=== PATIENT | male | born 1955 | race Caucasian/White ===

== ENCOUNTER 2020-08-25 13:05 | Observation (INO) | payer BC, SELFPAY ==
[2020-08-25] VITALS (16 sets, daily range): BP systolic 115–152; BP diastolic 68–85; PULSE 68–88; RESP 13–24; TEMP 36.8–37.2; O2SAT 94–100; BMI 26.8
--- NOTE | ~2020-08-25 | XR_ITS ---
EXAMINATION: XR chest 2V DATE: 08/25/2020 13:36 INDICATION: Shortness of breath and chest pain TECHNIQUE: PA and lateral views of the chest are obtained. COMPARISON: 01/30/2014 FINDINGS: The lungs are free of acute opacities. A calcified nodule of the right upper lobe is consis tent with old granulomatous disease. There is no pleural effusion or pneumothorax. The cardiomediasti nal silhouette is normal. The visualized bones and soft tissues are unremarkable. IMPRESSION: 1. No acute cardiopulmonary abnormality. Reviewed, dictated and finalized at location B.
--- NOTE | 2020-08-25 13:06 | ECG_ITS ---
Measurements Intervals [place] Rate: 72 P: 55 NE: 150 QRS: 30 QRSD: 100 T: 33 QT: 381 QTc: 418 Interpretive Statements SINUS RHYTHM NORMAL ECG Electronically Signed On 08-25-2020 13:17:49 CDT by Claudio Pereyra D.O.
[2020-08-25 13:30] LABS: Basophils Percent Auto 0.3 % (0.2-1.2); Eosinophils Absolute Auto 0.2 K/mm3 (0-0.3); Eosinophils Percent Auto 2.5 % (0-4.4); Hematocrit 30.6 % (42.0-52.0); Hemoglobin 9.7 g/dL (14.0-18.0); Immature Granulocyte Absolute 0.03 K/mm3 (0.00-0.031); Immature Granulocyte Percent A 0.5 % (0-0.5); Lymphocytes Absolute Auto 1.05 K/mm3 (0.9-3.2); Lymphocytes Percent Auto 17.4 % (18.3-44.2); Mean Corpuscular HGB Conc 31.7 g/dl (32-36); Mean Corpuscular Hemoglobin 26.9 pg (26-34); Mean Corpuscular Volume 84.8 fl (80-100); Mean Platelet Volume 9.3 fl (7.4-10.4); Monocytes Absolute Auto 0.5 K/mm3 (0.1-0.6); Monocytes Percent Auto 7.8 % (2.6-8.5); Neutrophils Absolute Auto 4.3 K/mm3 (1.3-6.7); Neutrophils Percent Auto 71.5 % (45.5-73.1); Platelet Count Result 359 k/mm3 (150-375); Red Blood Count 3.61 M/mm3 (4.6-6.20); Red Cell Distribution Width 14.3 % (11.5-14.5)
[2020-08-25 13:43] LABS: Anion Gap 8 mmol/L (8-16); Blood Urea Nitrogen 16 mg/dL (9-20); Calcium 9.6 mg/dL (8.4-10.2); Carbon Dioxide 27 mmol/L (22-30); Chloride 105 mmol/L (98-107); Estimated CRCL calculation 72 ml/min; Estimated Glomerular Filt Rate > 60; Glucose 97 mg/dL (75-110); Potassium 4.2 mmol/L (3.4-5.0); Sodium 140 mmol/L (137-145)
--- NOTE | 2020-08-25 13:46 | ED.CHESTPAIN ---
HPI - Chest Pain General Chief Complaint: Chest Pain Stated Complaint: chest pain, SOB Time Seen by Provider: 08/25/20 13:23 Source: patient Mode of arrival: ambulatory Limitations: no limitations History of Present Illness HPI narrative: Patient is a 65-year-old male complaining of chest pain, midsternal, pressure, 8 out of 10, now resolved, radiating to left upper extremity accompanied by shortness of breath and dizziness started after mowing his lawn. Patient now states that all his symptoms has resolved and he is feeling better. Patient denies any abdominal pain, nausea, vomiting, diaphoresis, fever or chills. Related Data Home Medications Medication Instructions Recorded Confirmed No Home Medications 08/25/20 08/25/20 Allergies Allergy/AdvReac Type Severity Reaction Status Date / Time No Known Allergies Allergy Verified 08/25/20 14:16 Review of Systems Review of Systems: All systems reviewed & are unremarkable except as noted in HPI and below Constitutional: Constitutional: Denies body ache(s), Denies chills, Denies excessive sweating, Denies fatigue, Denies fever(s), Denies headache(s), Denies lethargy, Denies malaise, Denies weakness and Denies weight loss Eyes: Eyes: Denies blurry vision, Denies change in vision and Denies loss of vision ENT: Denies dizziness, Denies ear discharge, Denies headache(s), Denies lip swelling, Denies epistaxis, Denies nasal congestion, Denies neck pain, Denies throat swelling and Denies tongue swelling Cardiovascular: Cardiovascular: Denies diaphoresis, Denies rapid heart rate, Denies edema, Denies irregular heart rhythm, Denies lightheadedness and Denies palpitations Respiratory: Respiratory: Denies chest congestion, Denies cough and Denies hemoptysis Gastrointestinal: Gastrointestinal: Denies abdominal pain, Denies melena, Denies hematochezia, Denies diarrhea, Denies nausea, Denies vomiting and Denies hematemesis Musculoskeletal: Musculoskeletal: Denies abnormal gait, Denies deformity, Denies joint swelling, Denies limited range of motion, Denies neck pain and Denies numbness Neurologic: Denies Abnormal speech present, Denies abnormal gait, Denies confusion, Denies headache(s), Denies focal weakness, Denies loss of vision, Denies numbness, Denies Other visual disturbances, Denies Sensory deficit (Neuro) and Denies weakness Psychiatric: Psychiatric: Denies confusion, Denies depression, Denies auditory hallucinations, Denies homicidal ideation and Denies suicidal ideation Endocrine: Endocrine: Denies cold intolerance, Denies excessive sweating, Denies fatigue, Denies heat intolerance and Denies palpitations Hematologic/Lymphatic: Hematologic/Lymphatic: Denies easy bleeding and Denies easy bruising Allergic/Immunologic: Allergic/Immunologic: Denies lip swelling, Denies throat swelling and Denies tongue swelling PMFSH Social History Social History Smoking status: Never smoker Alcohol intake: current Exam Const: General: cooperative, healthy appearing, comfortable, no acute distress, well developed, alert and awake; No confusion Orientation/consciousness: oriented to person, oriented to place, oriented to time, patient oriented x3 and No confusion Limitations: no limitations HENMT: Head: normal to inspection, normocephalic and atraumatic Ears: hearing grossly normal bilaterally, TM normal on the right and TM normal on the left General nose exam: Normal external nose present, Normal nares present and No nasal discharge present Face and sinus: normal facial exam Mouth: Yes Normal oral and palatal mucosa present, Yes lip normal, Yes tongue normal and Yes oropharynx normal Throat: posterior oropharynx normal, tonsils normal and uvula midline Eyes: General: appearance normal, both eyes and all related structures Pupils: Equal, round and reactive pupils present EOM: EOMs intact bilaterally Neck: Neck: normal visual inspection, full ROM, no lymphadenopathy and no meningeal s
[2020-08-25 13:47] LABS: INR 0.9; Prothrombin Time 12.2 Seconds (11.1-14.7)
[2020-08-25 13:55] LABS: Troponin I < 0.012 ng/mL (0.000-0.034)
[2020-08-25] MEDS: ASPIRIN 81 MG CHEWABLE TABLET 324 MG PO (14:18)
[2020-08-25 15:49] LABS: Troponin I 0.015 ng/mL (0.000-0.034)
--- NOTE | 2020-08-25 17:26 | ECG_ITS ---
Measurements Intervals [place] Rate: 75 P: 47 WI: 151 QRS: 14 QRSD: 99 T: 31 QT: 393 QTc: 440 Interpretive Statements SINUS RHYTHM EARLY PRECORDIAL R/S TRANSITION BORDERLINE ECG Electronically Signed On 08-26-2020 6:52:01 CDT by Claudio Pereyra D.O.
[2020-08-25 19:59] LABS: Troponin I 0.014 ng/mL (0.000-0.034)
--- NOTE | 2020-08-25 20:01 | PC.NURSE ---
This patient, Oren Lopez, was admitted to IMU Room 200-01. Patient/family oriented to hospital policies and general routines including ID bracelet, bed and alarms, visiting hours, pain management, procedures, bathroom and other care routines, personal items, smoking policy, room service/diet, and visiting hours. Information on how to activate the Rapid Response Team has been discussed. Patient/Family are encouraged to report perceived risks to care and to ask questions if they do not understand what they are told or what they should do.
[2020-08-26] VITALS (7 sets, daily range): BP systolic 115–130; BP diastolic 76–80; PULSE 54–72; RESP 14–18; TEMP 36.2–37.1; O2SAT 94–100
--- NOTE | 2020-08-26 10:02 | PM.IMHP ---
H&P: HPI History of Present Illness Date/Time: Date of service:08/26/20 10:02 Chief Complaint: Exertional chest pain Narrative: this is a 65-year-old man who does not have any previous known cardiac problems came to the emergency room here last evening because of symptoms of exertional chest pain that began Friday, the earlier part of this week. he does state that his primary care physician in the past this told him that he has a cardiac murmur but this was not a matter of any significant concern from what he can remember.The patient has noticed on 2 occasions since Friday of this week when he mows his grass he experiences symptoms of dyspnea and chest pain which have not generally been any problem for him. He is used to being able to to be in the habit of exercising significantly he usually rides his bicycle for fitness and has no symptomatology when he is exercising. This past week as mentioned above when he has tried to mow his lawn on a couple of occasions he has had to stop because of dyspnea and then a pain in the center of the chest that has radiated into the left shoulder and into the left arm. On both occasions when he stops to rest after a couple of minutes he becomes asymptomatic. He is not having any other symptoms such as orthopnea PND edema palpitations or syncope. He decided to come into the emergency room here last evening with the symptoms his evaluation in the ED was essentially unremarkable other than he was somewhat anemic with hemoglobin of 9.7. He states he has never been told by his physician that he was anemic in the past. He has a primary care physician out at [facility] in [facility] who sees him regularly for for physical exam but is not actively treating any medical problems. He is a retired gentleman who is a nonsmoker and has a history of coronary disease and CHF in his father but not at a premature age. One of his brothers has had cardiac valve surgery. Review of Systems Constitutional: Constitutional: Reports no additional constitutional complaints Eyes: Eyes: Reports no additional eye complaints ENT: Reports system reviewed and no additional complaints, except as documented Cardiovascular: Cardiovascular: Reports as per HPI Respiratory: Respiratory: Reports as per HPI Gastrointestinal: Gastrointestinal: Reports no additional gastrointestinal complaints Comments: Recent onset of dark stools Musculoskeletal: Musculoskeletal: Reports no additional musculoskeletal complaints Integumentary/Breasts: Skin/Breast: Reports system reviewed and no additional complaints, except as docu Neurologic: Reports system reviewed and no additional complaints, except as documented [facility] Family History Family History (Updated 08/25/20 @ 20:16 by Sweta Davalos RN) Father Congestive heart failure Hypertension Mother Cancer Social History Social History Smoking status: Never smoker Alcohol intake: current Drinks per week: 4 Substance use: never Spiritual care concerns: No Meds Home Medications and Allergies Home Medications Medication Instructions Recorded Confirmed Type No Home Medications 08/25/20 08/25/20 History Allergies Allergy/AdvReac Type Severity Reaction Status Date / Time No Known Allergies Allergy Verified 08/25/20 14:16 Vital Signs Vital Signs - 24 hr 08/25/20 13:08 08/25/20 14:14 08/25/20 14:15 Temperature 37.2 C Pulse Rate 76 72 72 Respiratory Rate 18 16 13 Blood Pressure 152/85 H 134/85 134/85 Pulse Oximetry 98 100 100 08/25/20 14:31 08/25/20 14:46 08/25/20 15:01 Temperature Pulse Rate 75 72 70 Respiratory Rate 21 H 13 13 Blood Pressure 123/79 124/82 127/85 Pulse Oximetry 96 100 96 08/25/20 17:36 08/25/20 18:00 08/25/20 18:17 Temperature Pulse Rate 76 Respiratory Rate 16 Blood Pressure 122/81 Pulse Oximetry 98 100 100 08/25/20 18:30 08/25/20 18:45 08/25/20 19:00 Temperature Pulse Rate 88 83
--- NOTE | 2020-08-26 10:42 | PM.DS ---
DS: Admitting Diagnosis Admitting Diagnosis Admitting Diagnosis: exertional angina DS: Discharge Diagnosis Discharge Diagnosis (1) Chest pain: Qualifiers: Chest pain type: unspecified Qualified Code(s): R07.9 - Chest pain, unspecified Code(s): R07.9 - Chest pain, unspecified Status: Acute DS: Summary Hospital Course Reason for hospitalization: exertional angina Hospital Course: this 65-year-old man who is unknown to me prior to this admission. He receives his medical care from a PCP out at [facility]. He came to the emergency room because starting on Friday of this week he noticed some episodes of exertional chest pain. Most notably when he is performing activities such as mowing his lawn 2 occasions he noted he had to stop because of the sense of shortness of breath and some chest discomfort which also did radiate into the region of his left shoulder and on 1 occasion into his left arm. The patient recognized the symptoms as concerning he came to the emergency room were of course he was not having any symptoms since he was not exerting. His ER evaluation was negative and he was admitted to the hospital for observation overnight. When I saw him this morning he was asymptomatic and comfortable at bedrest and offered no other complaints. He reports a history of a cardiac murmur in the past that was noted by his PCP which had not been otherwise evaluated as he was asymptomatic. his lab data here also showed that he was somewhat anemic with a hemoglobin of 9.7 with normocytic indices. On further questioning he does noticed darkening of his stools recently. No oxana hematochezia or obvious melena. Patient's biomarkers remain negative and had he had 2 normal electrocardiograms. The patient clearly requires evaluation of suspected ischemic heart disease, valvular heart disease and anemia. He is however not unstable and since he presented on Friday evening of the 3 day 27 of August hol weekend it was his preference and my recommendation that this could be pursued as an outpatient and directed by his established physician out at [facility]. I discussed at length with the patient about scheduling evaluation here at [facility] but in the interest of coordination of his care at 1 the institution I expressed a preference for him to be evaluated by his established physicians. As it happens he has an appointment with his PCP for an upcoming physical exam next week Friday which of course is right after the holiday weekend. He will presumably be referred for Cardiology and possibly GI evaluation at that institution. That being the case that is not my intention at this time to schedule if further evaluation here at [facility] or by our practice regarding his cardiac symptoms. In order to increase chances of stability I recommended that he take low-dose aspirin and prescribed low-dose metoprolol and rosuvastatin. He is instructed to remain sedentary and to see his physician for the scheduled appointment on Friday of next week. If his symptoms accelerate between now and then he was instructed either to come back to the hospital here or out to [facility] I would recommend this evaluation to take place as I mentioned above. Status at Discharge Functional status at discharge: independent ambulation Overall status at discharge: patient is back to baseline Time Spent with Patient Time attestation: Total time spent providing and/or coordinating discharge services: Exam Const: General: comfortable and no acute distress Eyes: Sclera: sclerae normal Pupils: Equal, round and reactive pupils present Neck: Neck: supple and no JVD Resp: Effort & Inspection: normal respiratory effort Auscultation: clear to auscultation bilaterally Cardio: Rate: regular rate Rhythm: regular rhythm Other: PMI not displaced patient has a grade 2/6 early peaking crescendo decrescendo murmur audible at the base, no diastolic murmu
[2020-08-26] MEDS: ROSUVASTATIN 5 MG TABLET PO (10:47)
[2020-08-26] MEDS: ASPIRIN 81 MG ENTERIC TABLET PO (10:47)
[2020-08-26] MEDS: METOPROLOL SUCCINATE EXT REL 25 MG TABCR PO (10:48)
== END 2020-08-26 11:10 | disposition home or self-care (01) ==
LOC: ANHED 17:25 → ANHIMU 08-26 10:49
PROVIDERS: Emergency Medicine; Admitting Provider Internal Medicine Cardiovascular Disease; Emergency Provider Emergency Medicine; PCP Internal Medicine Rheumatology; Visit Provider Specialist
DX: R07.9 Chest pain, unspecified (principal); R06.02 Shortness of breath; R42 Dizziness and giddiness; D64.9 Anemia, unspecified; Z82.49 Family history of ischemic heart disease and other diseases of the circulatory system; Z80.9 Family history of malignant neoplasm, unspecified
CPT/HCPCS: 36415; 71046; 80048; 84484; 85025; 85610; 85730; 93005; 99285; A9270; G0378

== ENCOUNTER 2023-01-25 10:47 | Emergency (ER) | payer MEDICARE, SELFPAY ==
--- NOTE | ~2023-01-25 | XR_ITS ---
EXAMINATION: XR chest 2V DATE: 01/25/2023 12:22 INDICATION: Tachycardia and hypertension TECHNIQUE: PA and lateral views of the chest were obtained. COMPARISON: Chest radiograph dated 08/25/2020 FINDINGS: Calcified nodule right upper lobe consistent with old granulomatous disease. No other airspace opacit ies, pulmonary edema, pleural effusion or pneumothorax. The cardiomediastinal silhouette is normal. V isualized bones and soft tissues are unremarkable. IMPRESSION: 1. No acute cardiopulmonary disease. Reviewed, dictated and finalized at location A. ODS EXAMINER
--- NOTE | ~2023-01-25 | CT_ITS ---
EXAMINATION: CTA chest PE protocol DATE: 01/25/2023 14:26 EARLY LEARNING TEACHER INDICATION: Shortness of breath. Heart racing. TECHNIQUE: Computed tomographic angiography (CTA) of the chest was performed with 100 mL Omnipaque-35 0 intravenous contrast. The dose-length product was 608.47 mGy-cm. Maximum intensity projection 3D-re constructions of the aorta and other arteries were constructed by the technologist on a separate work station. Automated exposure control and iterative reconstruction technique were employed. COMPARISON: None. FINDINGS: Study is technically adequate without evidence for pulmonary embolism. No thoracic lymphade nopathy. Heart size upper normal. No significant pleural or pericardial effusion. Upper abdomen is un remarkable. There are patchy groundglass opacities bilaterally. No endobronchial lesions. No pneumoth orax. Calcified granuloma right upper lobe. Mild thoracic spondylosis. Mild osteoarthritis of the francois ulders. IMPRESSION: 1. Patchy bilateral groundglass opacities in both lungs which may reflect small airway disease or pne umonia. 2: No evidence for pulmonary embolism. Reviewed, dictated and finalized at location A. Y LEARNING TEACHER IMPRESSION: 1. Patchy bilateral groundglass opacities in both lungs which may reflect small airway disease or pneumonia. 2: No evidence for pulmonary embolism.
[2023-01-25 10:46] VITALS: BP 171/90; PULSE 68; RESP 14; TEMP 36.8; O2SAT 100
[2023-01-25 11:01] VITALS: BP 169/92; PULSE 67; RESP 14; O2SAT 100
--- NOTE | 2023-01-25 11:09 | ECG_ITS ---
Measurements Intervals [place] Rate: 64 P: 46 AL: 166 QRS: 16 QRSD: 114 T: 42 QT: 415 QTc: 430 Interpretive Statements SINUS RHYTHM NONSPECIFIC iNTRAVENTRICULAR CONDUCTION DELAY [110+ ms QRS DURATION] BORDERLINE ECG COMPARED TO ECG 08/25/2020 19:10:44 NONSPECIFIC IVCD APPRECIATED Electronically Signed On 01-25-2023 14:12:01 RAMP AGENT by Leonel Albert M.D.
--- NOTE | 2023-01-25 11:25 | ED.DIZZY ---
HPI - Dizziness General Chief Complaint: Syncope Stated Complaint: near syncopal Time Seen by Provider: 01/25/23 11:08 Source: patient, EMS, RN notes reviewed and old records reviewed Mode of arrival: EMS Limitations: no limitations History of Present Illness HPI Narrative: This is a 67 year old male with history of hypertension, hyperlipidemia and CAD s/p stent 2 years ago who presents for evaluation of lightheadedness. Patient states he was lightheaded when he got out of bed this morning. He states he was standing and he felt like his heart was racing and he was going to pass out. She also reports possible mild sob. He denies chest pain or discomfort. He states this lasted approximately 10 minutes. He was able to walk outside but he still felt off. He reports he feels better now. MD elicited complaint: lightheadedness Related Data Home Medications Medication Instructions Recorded Confirmed clopidogrel 75 mg tablet mg 01/25/23 01/25/23 Allergies Allergy/AdvReac Type Severity Reaction Status Date / Time No Known Allergies Allergy Verified 08/25/20 14:16 Review of Systems Constitutional: Constitutional: Denies weakness Cardiovascular: Cardiovascular: Denies syncope, Reports rapid heart rate, Denies irregular heart rhythm, Denies leg edema and Reports dyspnea Respiratory: Respiratory: Denies chest congestion, Denies hemoptysis, Denies excessive phlegm production and Denies dyspnea Gastrointestinal: Gastrointestinal: Denies abdominal pain, Denies hematochezia, Denies diarrhea and Denies vomiting Genitourinary: Genitourinary: Denies hematuria, Denies dysuria, Denies penile discharge and Denies testicular pain Musculoskeletal: Musculoskeletal: Denies joint swelling, Denies loss of height and Denies muscle weakness Neurologic: Reports dizziness, Denies syncope, Denies focal weakness and Denies weakness [facility] Past Medical History Medical History (Updated 01/25/23 @ 15:04 by Jocelynn Arceo MD) CAD (coronary artery disease) Surgical History Surgical History (Updated 01/25/23 @ 11:27 by Jocelynn Arceo MD) History of coronary artery stent placement Family History Family History (Updated 08/25/20 @ 20:16 by Sweta Davalos RN) Father Congestive heart failure Hypertension Mother Cancer Social History Social History Smoking status: Never smoker Alcohol intake: current Drinks per week: 4 Substance use: never Spiritual care concerns: No Exam Const: General: no acute distress and alert Nutritional Appearance: well nourished Orientation/consciousness: patient oriented x3 Limitations: no limitations HENMT: Head: normal to inspection Ears: TM's normal bilaterally Eyes: EOM: EOMs intact bilaterally Chest: Chest palpation & inspection: normal inspection of the chest Resp: Effort & Inspection: normal respiratory effort Auscultation: clear to auscultation bilaterally Cardio: Rate: regular rate Rhythm: regular rhythm Heart sounds: Murmur heart sound present systolic GI: Auscultation: normal bowel sounds Back/Spine/Pelvis: Back: no CVA tenderness Skin: General skin exam: normal color Rashes: no rashes Wounds: no wounds Neuro: General: patient oriented x3, moves all extremities and CN's II-XI intact bilaterally Psych: Mental Status: mental status grossly normal Affect: normal affect Attitude: cooperative Course Reevaluation(s) Reevaluation #1: PAtient states he feels better. He is not having heart racing. 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 I also discussed his CT . He denies any cough or shortness of breath. no fever or wbc so unlikely pneumonia Date: 01/25/23 Time: 15:01 Vital Signs Vital signs: Vital Signs Temperature 98.3 F 01/25/23 10:46 Pulse Rate 68 01/25/23 10:46 Respiratory Rate 14 01/25/23 10:46 Blood Pressure 171/90 H 01/25/23 10:46 Pulse Oximetry 100 01/25/23 10:46 Oxygen Delivery Room Air
[2023-01-25 11:56] LABS: Basophils Percent Auto 0.3 % (0.2-1.2); Eosinophils Absolute Auto 0.1 K/mm3 (0-0.3); Eosinophils Percent Auto 2.2 % (0-4.4); Hematocrit 41.9 % (42.0-52.0); Hemoglobin 13.4 g/dL (14.0-18.0); Immature Granulocyte Absolute 0.03 K/mm3 (0.00-0.031); Immature Granulocyte Percent A 0.5 % (0-0.5); Lymphocytes Absolute Auto 1.04 K/mm3 (0.9-3.2); Lymphocytes Percent Auto 17.2 % (18.3-44.2); Mean Corpuscular Hemoglobin 26.2 pg (26-34); Mean Platelet Volume 9.5 fl (7.4-10.4); Monocytes Absolute Auto 0.6 K/mm3 (0.1-0.6); Monocytes Percent Auto 9.8 % (2.6-8.5); Neutrophils Absolute Auto 4.2 K/mm3 (1.3-6.7); Platelet Count Result 264 k/mm3 (150-375); Red Blood Count 5.11 M/mm3 (4.6-6.20); Red Cell Distribution Width 14.4 % (11.5-14.5)
[2023-01-25 12:08] LABS: Alanine Aminotransferase 40 U/L (6-50); Alkaline Phosphatase 96 U/L (38-126); Anion Gap 9 mmol/L (8-16); Aspartate Amino Transferase 34 U/L (17-59); Bilirubin,Total 0.3 mg/dL (0.2-1.3); Blood Urea Nitrogen 16 mg/dL (9-20); Calcium 8.7 mg/dL (8.4-10.2); Carbon Dioxide 25 mmol/L (22-30); Chloride 105 mmol/L (98-107); Estimated CRCL calculation 84 ml/min; Estimated Glomerular Filt Rate > 60; Glucose 108 mg/dL (65-110); Lipase 62 U/L (23-300); Potassium 4.3 mmol/L (3.4-5.0); Sodium 139 mmol/L (137-145)
[2023-01-25 12:10] LABS: INR 0.9; Prothrombin Time 12.8 Seconds (11.1-14.7)
[2023-01-25 12:11] LABS: Partial Thromboplastin Time 28.9 SECONDS (22.3-36.8)
[2023-01-25 12:19] LABS: Troponin I < 0.012 ng/mL (0.000-0.034)
[2023-01-25 12:45] LABS: D Dimer 0.49 ug/mL (<0.48)
[2023-01-25 14:12] VITALS: BP 138/78; PULSE 68
[2023-01-25 14:13] VITALS: BP 148/89; PULSE 67
[2023-01-25 14:15] VITALS: BP 142/92
[2023-01-25 14:58] LABS: Troponin I 0.019 ng/mL (0.000-0.034)
[2023-01-25 15:27] VITALS: BP 127/73; PULSE 68; RESP 16; O2SAT 99
== END 2023-01-25 15:30 | disposition home or self-care (01) ==
PROVIDERS: Emergency Provider General Practice; PCP Internal Medicine Rheumatology
DX: R00.2 Palpitations (principal); R06.02 Shortness of breath; E78.5 Hyperlipidemia, unspecified; I10 Essential (primary) hypertension; I25.10 Atherosclerotic heart disease of native coronary artery without angina pectoris; Z95.5 Presence of coronary angioplasty implant and graft; R91.8 Other nonspecific abnormal finding of lung field; I45.9 Conduction disorder, unspecified
CPT/HCPCS: 36415; 71046; 71275; 80053; 83690; 83735; 84443; 84484; 85025; 85380; 85610; 85730; 93005; 99284; Q9967

== ENCOUNTER 2023-02-11 02:51 | Emergency (ER) | payer MEDICARE, SELFPAY ==
[2023-02-11] VITALS (22 sets, daily range): BP systolic 118–176; BP diastolic 69–85; PULSE 54–72; RESP 10–26; TEMP 36.3; O2SAT 92–100
--- NOTE | ~2023-02-11 | XR_ITS ---
Clinical Indication: Chest pain PA and lateral views of the chest: Comparison: 01/25/2023 Findings: Stable calcified right upper lobe granuloma. The lungs are otherwise clear, without evidenc e of focal consolidation or pleural effusion. Cardiomediastinal silhouette is within normal limits. Bones and soft tissues are unremarkable. Impression: No significant abnormality. Reviewed, dictated and finalized at location . H CLEANER Impression: No significant abnormality.
--- NOTE | 2023-02-11 02:52 | ECG_ITS ---
Measurements Intervals [place] Rate: 71 P: 44 SD: 165 QRS: 1 QRSD: 114 T: 42 QT: 390 QTc: 426 Interpretive Statements SINUS RHYTHM COMPARED TO ECG 01/25/2023 11:16:06 NO SIGNIFICANT CHANGES Electronically Signed On 02-11-2023 13:34:05 CHOIR ACCOMPANIST by Masoud Chapman M.D.
[2023-02-11 03:10] LABS: Basophils Percent Auto 0.3 % (0.2-1.2); Eosinophils Absolute Auto 0.2 K/mm3 (0-0.3); Eosinophils Percent Auto 3.3 % (0-4.4); Hematocrit 42.7 % (42.0-52.0); Hemoglobin 13.5 g/dL (14.0-18.0); Immature Granulocyte Absolute 0.01 K/mm3 (0.00-0.031); Immature Granulocyte Percent A 0.2 % (0-0.5); Lymphocytes Absolute Auto 1.73 K/mm3 (0.9-3.2); Lymphocytes Percent Auto 26.9 % (18.3-44.2); Mean Corpuscular HGB Conc 31.6 g/dl (32-36); Mean Corpuscular Hemoglobin 26.3 pg (26-34); Mean Corpuscular Volume 83.1 fl (80-100); Mean Platelet Volume 9.6 fl (7.4-10.4); Monocytes Absolute Auto 0.6 K/mm3 (0.1-0.6); Monocytes Percent Auto 9.8 % (2.6-8.5); Neutrophils Absolute Auto 3.8 K/mm3 (1.3-6.7); Neutrophils Percent Auto 59.5 % (45.5-73.1); Platelet Count Result 279 k/mm3 (150-375); Red Blood Count 5.14 M/mm3 (4.6-6.20); Red Cell Distribution Width 14.5 % (11.5-14.5); White Blood Count 6.4 K/mm3 (4.5-10.0)
[2023-02-11 03:20] LABS: Alanine Aminotransferase 36 U/L (6-50); Albumin Level 4.3 g/dL (3.5-5.1); Alkaline Phosphatase 86 U/L (38-126); Anion Gap 9 mmol/L (8-16); Aspartate Amino Transferase 37 U/L (17-59); Bilirubin,Total 0.4 mg/dL (0.2-1.3); Blood Urea Nitrogen 24 mg/dL (9-20); Calcium 9.5 mg/dL (8.4-10.2); Carbon Dioxide 26 mmol/L (22-30); Chloride 105 mmol/L (98-107); Estimated CRCL calculation 75 ml/min; Estimated Glomerular Filt Rate > 60; Glucose 128 mg/dL (65-110); Lipase 101 U/L (23-300); Potassium 4.1 mmol/L (3.4-5.0); Sodium 140 mmol/L (137-145)
[2023-02-11 03:30] LABS: Troponin I < 0.012 ng/mL (0.000-0.034)
[2023-02-11] MEDS: ASPIRIN 81 MG CHEWABLE TABLET 324 MG PO (03:59)
[2023-02-11] MEDS: NITROGLYCERIN SL 0.4 MG TABLET SUBLINGUAL (04:00)
--- NOTE | 2023-02-11 04:14 | PC.NURSE ---
Pt states pain now 4/10 after initial nitro. 1 additional nitro given BP 154/99
--- NOTE | 2023-02-11 04:39 | PC.NURSE ---
Pt reports not feeling well after second nitro. BP significantly lower 107/77. Will hold third nitro.
--- NOTE | 2023-02-11 05:24 | ED.GENADULT ---
HPI - General Adult General Chief complaint: Chest Pain Stated complaint: chest pain Time Seen by Provider: 02/11/23 03:30 History of Present Illness HPI narrative: Patient is a 67-year-old gentleman who presents the emergency department with chief complaint of chest pain. Patient reports that he has a stent that was placed at [facility] this evening woke up having discomfort in his chest. Patient states he was seen in the emergency department fairly recently for an episode of palpitations patient reports that he has a upcoming stress test scheduled the 1st week of next month. Related Data Home Medications Medication Instructions Recorded Confirmed clopidogrel 75 mg tablet mg 01/25/23 01/25/23 Allergies Allergy/AdvReac Type Severity Reaction Status Date / Time No Known Allergies Allergy Verified 02/11/23 02:51 Review of Systems Review of Systems: A 10 system review of systems was completed on the patient and is negative except for what is stated in the HPI. Nursing and ancillary documentation was reviewed. PMFSH Past Medical History Medical History CAD (coronary artery disease) Surgical History Surgical History History of coronary artery stent placement Family History Family History Father Congestive heart failure Hypertension Mother Cancer Social History Social History Smoking status: Never smoker Alcohol intake: current Drinks per week: 4 Substance use: never Spiritual care concerns: No Exam Narrative: GENERAL: Well-appearing, well-nourished, and in no acute distress. HEAD: Normocephalic, atraumatic. EYES: PERRLA and EOMI. ENT: Nares clear, no rhinorrhea or epistaxis. Mucous membranes moist. NECK: Supple. CHEST: Clear to auscultation. No respiratory distress. HEART: Regular rate and rhythm. No murmur heard. Normal peripheral pulses. ABDOMEN: Soft, nontender, nondistended, normal active bowel sounds. EXTREMITIES: Normal range of motion. No edema. SKIN: Warm, dry, no rash. NEURO: No focal deficits. Alert and oriented x3. PSYCH: Normal mood and affect. Course Vital Signs Vital signs: Vital Signs Temperature 36.3 C L 02/11/23 02:52 Pulse Rate 72 02/11/23 02:52 Respiratory Rate 18 02/11/23 02:52 Blood Pressure 176/82 H 02/11/23 02:52 Pulse Oximetry 98 02/11/23 02:52 Oxygen Delivery Room Air 02/11/23 02:52 Temperature 36.3 C L 02/11/23 02:52 Pulse Rate 59 L 02/11/23 06:15 Respiratory Rate 17 02/11/23 06:15 Blood Pressure 122/72 02/11/23 05:46 Pulse Oximetry 98 02/11/23 06:15 Oxygen Delivery Room Air 02/11/23 03:30 Medical Decision Making MDM Narrative Medical decision making narrative: differential diagnosis includes ACS, atypical chest pain, unstable angina. The patient is scheduled for a stress test on March 01. Initial troponin was negative a 3 hour delta troponin is negative. 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 primary jet handler Vital Signs Vital Signs: Vital Signs Temperature 36.3 C L 02/11/23 02:52 Pulse Rate 72 02/11/23 02:52 Respiratory Rate 18 02/11/23 02:52 Blood Pressure 176/82 H 02/11/23 02:52 Pulse Oximetry 98 02/11/23 02:52 Oxygen Delivery Room Air 02/11/23 02:52 Temperature 36.3 C L 02/11/23 02:52 Pulse Rate 59 L 02/11/23 06:15 Respiratory Rate 17 02/11/23 06:15 Blood Pressure 122/72 02/11/23 05:46 Pulse Oximetry 98 02/11/23 06:15 Oxygen Delivery Room Air 02/11/23 03:30 Lab Data 02/11/23 03:03 02/11/23 03:03 Labs: Lab Results 02/11/23 02/11/23 Range/Units 03:03 06:06 WBC 6.4 (4.5-10.0) K/mm3 RBC 5.14 (4.6-6.20) M/mm3 Hgb
--- NOTE | 2023-02-11 05:53 | ECG_ITS ---
Measurements Intervals [place] Rate: 56 P: 40 ID: [id number] QRS: 14 QRSD: 105 T: 30 QT: 392 QTc: 380 Interpretive Statements SINUS BRADYCARDIA COMPARED TO ECG 02/11/2023 02:57:37 SINUS BRADYCARDIA NOW PRESENT Electronically Signed On 02-11-2023 13:35:21 PULP REFINER OPERATOR by Masoud Chapman M.D.
[2023-02-11 06:33] LABS: Troponin I < 0.012 ng/mL (0.000-0.034)
--- NOTE | 2023-02-11 07:21 | PC.NURSE ---
Report to ROBIN Solomon. Pt ambulatory to [facility].
== END 2023-02-11 07:26 | disposition home or self-care (01) ==
PROVIDERS: Emergency Provider Emergency Medicine; PCP Internal Medicine Rheumatology
DX: R07.9 Chest pain, unspecified (principal); I25.10 Atherosclerotic heart disease of native coronary artery without angina pectoris
CPT/HCPCS: 36415; 71046; 80053; 83690; 84484; 85025; 85610; 85730; 93005; 99284; A9270

== ENCOUNTER 2024-04-21 10:41 | Outpatient (CLI) | payer MEDICARE, SELFPAY ==
--- OUTSIDE RECORDS SUMMARY | 2024-04-21 12:08 | XMS_ITS | Encounter Summary ---
Author Organization [facility] Address [address] [place] [address] Phone Care Team Providers Care Software Sales Manager Name Role Phone Ramona Koroma MD Primary Care Provider [phone] Encounter Details Date Type Department Care Team (Latest Contact Info) Description 09/26/2023 Orders Only [facility] Scanning, Provider Social History Tobacco Use Types Packs/Day Years Used Date Smoking Tobacco: Never Smokeless Tobacco: Never Personal Safety Answer Date Recorded Getting School Help Needed Not on file 03/19 Sex and Gender Information Value Date Recorded Sex Assigned at Not on file 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 Gender Identity Not on file Sexual Orientation Not on file documented as of this encounter Progress Notes * Erik Rodriguez MD - 09/26/2023 11:59 PM CDT Labs stable LDL ok documented in this encounter Plan of Treatment Not on file documented as of this encounter Procedures Procedure Name Priority Date/Time Associated Diagnosis Comments SCAN - LABS 09/26/2023 documented in this encounter Results * SCAN - LABS (09/26/2023) us Provider Scanning Final Result documented in this encounter Visit Diagnoses Not on filedocumented in this encounter Care Teams Software Sales Manager Relationship Specialty Start Date End Date Ramona Koroma MD [address] [place] [address] [place] [address] PCP - General Rheumatology 08/26/20 documented as of this encounter
--- OUTSIDE RECORDS SUMMARY | 2024-04-21 12:08 | XMS_ITS | Referral Summary ---
Author Organization [facility] [address] Address [address] [place] [address] Care Team Providers Care Systems Coordinator Name Role Phone Ramona Koroma MD Primary Care Provider [phone] Allergies No known active allergies Medications metoprolol XL (TOPROL-XL) 25 mg extended release tablet 1 TABLET(S) ORAL DAILY,X100 DAY(S) 04/18/2023 Active rosuvastatin (CRESTOR) 40 mg tablet Take 1 tablet (40 mg total) by mouth nightly 02/25/2023 Active aspirin 81 mg enteric coated tablet Take 1 tablet (81 mg total) by mouth daily Active losartan (COZAAR) 50 mg tablet Take 1 tablet (50 mg total) by mouth daily 90 tablet 3 05/06/2023 5 Active ezetimibe (ZETIA) 10 mg tablet Take 1 tablet (10 mg total) by mouth daily 30 tablet 11 05/12/2023 5 Active Active Problems Problem Noted Date Diagnosed Date Iron deficiency anemia, unspecified 05/06/2023 Nonrheumatic aortic valve stenosis 05/06/2023 Primary hypertension 05/06/2023 Coronary artery disease invo lving [place] coronary artery of [place] heart without angina pectoris 05/06/2023 Hypercholesteremia 05/06/2023 Class 1 obesity due to exces s calories with body mass index (BMI) of 31.0 to 31.9 in adult 05/06/2023 Social History Tobacco Use Types Packs/Day Years Used Date Smoking Tobacco: Never Smokeless Tobacco: Never Tobacco Cessation:Counseling Given: Not Answered Personal Safety Answer Date Recorded Getting School Help Needed Not on file 03/19 Sex and Gender Information Value Date Recorded Sex Assigned at Not on file 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 Gender Identity Not on file Sexual Orientation Not on file Last Filed Vital Signs Vital Sign Reading Time Taken Comments Blood Pressure 130/81 05/06/2023 8:14 AM CDT Pulse 64 05/06/2023 8:14 AM CDT Temperature - - Respiratory Rate - - Oxygen Saturation 97% 05/06/2023 8:14 AM CDT Inhaled Oxygen Concentration - - Weight 105.7 kg (233 lb) 05/06/2023 8:14 AM CDT Height 182.9 cm (6') 05/06/2023 8:14 AM CDT Body Mass Index 31.6 05/06/2023 8:14 AM CDT Plan of Treatment Not on file Insurance MEDICARE [facility] Care Teams Systems Coordinator Relationship Specialty Start Date End Date Ramona Koroma MD [address] [address] PCP - General Rheumatology 08/26/20
--- OUTSIDE RECORDS SUMMARY | 2024-04-21 12:08 | XMS_ITS | Clinical Summary ---
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 Gender Identity Not on file Sexual Orientation Not on file Plan of Treatment Health Maintenance Due Date Last Done Comments DTAP/TDAP/TD VACCINES (1 - Tdap) 08/13/1975 COLORECTAL SCREENING 2001 Colorectal Cancer Screening 2001 FIT-DNA Q 3 years 2001 FIT/FOBT Q 1 year 2001 Flex Sig/CT Colonography Q 5 years 2001 PNEUMOCOCCAL VACCINE 65+ YEARS (1 of 1 - PCV) 08/13/19 07 ZOSTER VACCINE (1 of 2) 2006 INFLUENZA VACCINE (#1) 2023 RSV VACCINE (60+ or ) (1 - 1-dose 75+ series) 08/13/2031 Insurance Care Teams Automobile Brake Bonder Relationship Specialty Start Date End Date Ramona Koroma MD [address] [place] [address] [address] [place] [address] PCP - General 02/10/15
--- OUTSIDE RECORDS SUMMARY | 2024-04-21 12:08 | XMS_ITS | Patient Health Record ---
Author Organization [facility] Address [address] [place] [address] Care Team Providers Care Revenue Stamper Name Role Phone Franci BECKER, [place] Primary Care Provider Rene Romero Unavailable [phone] Reason For Referral No Information Problems Problem Type SNOMED Code ICD Code Onset Dates Problem Status W/U Status Risk Notes Problem [id number] Iron deficiency anemia, unspecified (D50.9) Active confirmed Plan Of Treatment No Information Insurance Providers Payer Name Payer Address Payer Phone Subscriber Number Group Number Insured Name Patient Relationship to Insured Coverage Start Date Coverage End Date Blue Access Choice PPO [id number] [address] [place] [address] [phone] [id number] Tisha Lopez Self - patient is the insured
--- OUTSIDE RECORDS SUMMARY | 2024-04-21 12:08 | XMS_ITS | Continuity of Care Document ---
Author Organization [facility] Address [address] [place] [address] Phone Care Team Providers Care Legal Compliance Officer Name Role Phone [facility] Unavailable Unavail able Procedures Procedure Date Contact Lens Hydrophilic, Spherical Sales Tax Contact Lens Hydrophilic, Spherical Tax - Medical Eye Exam & Treatment Refraction Advance Directives Directive Yes / No Effective Date File Name No Information Encounters Encounter Description Practice Location Reason(s) For Visit Diagnoses Date Provider Providers Copied on Encounter [facility], [address] [place] [address] [address], [place], [place], [id number], [place] tel:[phone] [facility] No Information 0-201 0 [facility] . [address], [address], [place], [place], [id number], [place]. tel:[phone] [facility], [address] [place] [address] [address], [place], [place], [id number], [place] tel:[phone] [facility] No Information 1-201 0 [facility]. [address] [place] , [address], [place], [address], [place]. tel:[phone] [facility], [address], [place], [place], [id number], [place] tel:[phone] [facility] No Information 9-201 0 [facility]. [address] , [address], [place], [address], [place]. tel:[phone] Family History Family Member Type Diagnosis Age At Onset No Information Payers Payer name Insurance type Covered green party ID Authoriza tion(s) No Information Social History Type Description Quantity Date Captured Comments Sex Male Smoking Status No Information Chief Complaint And Reason For Visit No Information Reason For Referral Reason For Referral No Information History Of Present Illness Encounter Date Complaint History Of Prese nt Illness No Information Functional Status Date Functional Assessmen t No Information Instructions Date Instruction Additional Infor mation No Information Assessments Type Assessment Date No Information Patient Care Teams Name Effective Dates (start - stop) Status Members No Information
--- OUTSIDE RECORDS SUMMARY | 2024-04-21 12:08 | XMS_ITS | Encounter Summary ---
Author Organization [facility] Address 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
--- OUTSIDE RECORDS SUMMARY | 2024-04-21 12:08 | XMS_ITS | Encounter Summary ---
Author Organization [facility] Address 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
--- OUTSIDE RECORDS SUMMARY | 2024-04-21 12:08 | XMS_ITS | Clinical Summary ---
Author Organization [facility] [address] Address [address] [place] [address] Care Team Providers Care Geriatric Psychiatrist Name Role Phone Ramona Koroma MD Primary Care Provider Allergies No known active allergies Medications metoprolol [...] hypertension 05/06/2023 Coronary artery disease invo lving [place] coronary artery of [place] heart without angina pectoris 05/06/2023 Hypercholesteremia 05/06/2023 Class 1 obesity due to exces s calories with body mass index (BMI) of 31.0 to 31.9 in adult 05/06/2023 Family History Medical History Relation Name Comments Heart attack Father Hypertension Father Stroke Father Cancer Mother Diabetes Mother Hypertension Mother Relation Name Status Comments Father Mother Social History Tobacco Use Types Packs/Day Years Used Date Smoking Tobacco: Never Smokeless Tobacco: Never Tobacco Cessation:Counseling Given: Not Answered Personal Safety Answer Date Recorded Getting School Help Needed Not on file 03/19 Sex and Gender Information Value Date Recorded Sex Assigned at Not on file 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 Gender Identity Not on file Sexual Orientation Not on file Obstetrics History Last Filed Vital Signs Vital Sign Reading [...] 05/06/2023 8:14 AM CDT Plan of Treatment Health Maintenance Due Date Last Done Comments Colon Cancer Screening-Colonoscopy 1956 Depression Screening 1956 Fall Risk Assessment 1956 Hepatitis C Screening 1956 Prostate Cancer Screening-PSA 1956 DTaP/Tdap/Td Vaccine (1 - Tdap) 08/13/1967 Hepatitis B Screening 1974 Pneumococcal vaccine 65+ (1 of 1 - PCV) 2006 Zoster Vaccine (1 of 2) 2006 Well Visit 65+ 2021 Influenza Vaccine (#1) 2023 Insurance MEDICARE [facility] Care Teams Geriatric Psychiatrist Relationship Specialty Start Date End Date Ramona Koroma MD [address] [place] [address] [address] [place] [id number] PCP - General Rheumatology 08/26/20
== END 2024-04-21 10:42 | disposition home or self-care (01) ==
LOC: ANHAUDIO 10:41
PROVIDERS: PCP Internal Medicine Rheumatology; Visit Provider Otolaryngology Otolaryngology/Facial Plastic Surgery
DX: H93.12 Tinnitus, left ear (principal)
CPT/HCPCS: 92557; 92567

== ENCOUNTER 2024-05-06 11:16 | Outpatient (CLI) | payer MEDICARE, SELFPAY ==
--- NOTE | ~2024-05-06 | MR_ITS ---
EXAMINATION: MR IAC wo/w con DATE: 05/06/2024 12:03 INDICATION: Sensorineural hearing loss, bilateral. TECHNIQUE: Magnetic resonance imaging (MRI) of the brain, brainstem, and internal auditory canals was performed without and with 20 mL ProHance intravenous contrast. COMPARISON: None. FINDINGS: There are scattered areas of nonspecific increased T2-weighted signal intensity in the cere bral white matter, which is within normal limits for the patient's age. There is no intracranial hemo rrhage, acute infarction, or abnormal intracranial mass lesion. The ventricles are normal in size. Th e orbits are normal. The paranasal sinuses are clear. The internal auditory canals, inner ears, tympa billy cavities, and mastoid air cells are normal. IMPRESSION: 1. Normal aging brain. Reviewed, dictated and finalized at location B. IMPRESSION: 1. Normal aging brain.
== END 2024-05-06 11:17 | disposition home or self-care (01) ==
LOC: MICIMG 11:17
PROVIDERS: PCP Internal Medicine Rheumatology; Visit Provider Otolaryngology Otolaryngology/Facial Plastic Surgery
DX: H90.3 Sensorineural hearing loss, bilateral (principal)
CPT/HCPCS: 70553; A9579